=== PATIENT | female | born 1985 | race Caucasian/White ===

== ENCOUNTER 2021-07-28 11:31 | Emergency (ER) | payer SELFPAY ==
--- NOTE | ~2021-07-28 | XR_ITS ---
XR toe 1st LT min 2V 07/28/2021 12:07 INDICATION: Left first toe pain PROCEDURE: 4 views left first toe COMPARISON: No prior studies for comparison. FINDINGS: Fracture, dislocation or subluxation is not identified. The soft tissues appear within norm al limits. No foreign bodies are identified. IMPRESSION: 1: NO ACUTE BONE OR JOINT ABNORMALITY IDENTIFIED. Reviewed, dictated and finalized at location A. [facility]
[2021-07-28 11:41] VITALS: BP 135/90; PULSE 118; RESP 16; TEMP 37.7; O2SAT 100
--- NOTE | 2021-07-28 12:07 | PC.NURSE ---
PT DECLINED WHEELCHAIR TO RADIOLOGY AND ICE FOR COMFORT
--- NOTE | 2021-07-28 12:13 | ED.LOWEXIN ---
HPI - Extremity Injury (Lower) General Chief Complaint: Extremity Injury, Lower Stated Complaint: Toe Injury Left Foot Time Seen by Provider: 07/28/21 11:56 Source: patient and RN notes reviewed Mode of arrival: ambulatory Limitations: no limitations History of Present Illness HPI Narrative: Patient presents today complaining of left great toe injury. A rolling pin rolled off her counter yesterday onto her toe, injuring her.. She does report some numbness and tingling to the toe. Currently rates her pain 6/10, which increases with movement and weightbearing. She has applied ice and taking Tylenol with mild relief. MD complaint: foot injury Related Data Home Medications Medication Instructions Recorded Confirmed No Home Medications 07/28/21 07/28/21 Allergies Allergy/AdvReac Type Severity Reaction Status Date / Time No Known Allergies Allergy Unverified 11/06/14 15:06 Review of Systems Review of Systems: CONSTITUTIONAL: Denies body aches, fever, chills, or sweats. EYES: Denies visual changes, redness, or discharge. ENT: Denies rhinorrhea, congestion, sore throat, or otalgia. CARDIOVASCULAR: Denies chest pain, palpitations, or edema. RESPIRATORY: Denies cough or dyspnea. GASTROINTESTINAL: Denies abdominal pain, nausea, vomiting, or diarrhea. GENITOURINARY: Denies dysuria or hematuria. SKIN: Denies rash, itching, or wounds. MUSCULOSKELETAL: Denies back pain, or myalgia. + Left great toe injury NEUROLOGIC: Denies headache, or weakness.+ Numbness and tingling to the left great toe PSYCH: Denies depression or anxiety. PMFSH Comments At time of signature, I have reviewed and agree with nursing past medical, surgical, social and family history unless otherwise noted. Please see nursing chart for further information. There is no relevant family history pertinent to the presenting complaint Exam Narrative: GENERAL: Well-appearing, well-nourished, and in no acute distress. HEAD: Normocephalic, atraumatic. EYES: EOMI. No redness or drainage. Conjunctivae normal. ENT: Mucous membranes pink and moist. NECK: Normal AROM. CHEST: No respiratory distress. EXTREMITIES: Left great toe: Tenderness to the entire toe. Ecchymosis to the proximal half of the toe. Distal sensation is intact. Capillary refill normal. Pedal pulse normal. Range of motion is somewhat limited due to pain. Mild edema about the toe. Toenail is normal. SKIN: Warm, dry, no rash. Capillary refill normal. Normal skin turgor. NEURO: No focal deficits. Alert and oriented x3. Gait steady. PSYCH: Normal affect. No signs of depression or anxiety. Course Vital Signs Vital signs: Vital Signs Temperature 99.9 F H 07/28/21 11:41 Pulse Rate 118 H 07/28/21 11:41 Respiratory Rate 16 07/28/21 11:41 Blood Pressure 135/90 07/28/21 11:41 Pulse Oximetry 100 07/28/21 11:41 Temperature 99.9 F H 07/28/21 11:41 Pulse Rate 118 H 07/28/21 11:41 Respiratory Rate 16 07/28/21 11:41 Blood Pressure 135/90 07/28/21 11:41 Pulse Oximetry 100 07/28/21 11:41 Reviewed. Pt has been instructed to follow up with her PCP regarding her elevated blood pressure today. MDM - Extremity Injury (Lower) Differential Diagnosis Differential diagnosis: Likely other (Toe fracture, dislocation, contusion) Imaging Data Radiologist's impression: ITS Impressions Toe X-Ray 07/28/21 12:09 IMPRESSION: 1: NO ACUTE BONE OR JOINT ABNORMALITY IDENTIFIED. Critical Care Time Critical Care Time Critical Care Time: No Discharge Plan Discharge Clinical Impression: Contusion of great toe of left foot Qualifiers: Encounter type: initial encounter Damage to nail status: without damage Qualified Code(s): S90.112A - Contusion of left great toe without damage to nail, initial encounter Patient Disposition: Home, Self-Care Condition: Stable Instructions: Contusion in Adults (ED) Additional Instructions: Your x-ray is negative f
== END 2021-07-28 12:23 | disposition home or self-care (01) ==
PROVIDERS: Emergency Provider Nurse Practitioner
DX: S90.112A Contusion of left great toe without damage to nail, initial encounter (principal); W22.8XXA Striking against or struck by other objects, initial encounter
CPT/HCPCS: 73660; 99203; G0463